=== PATIENT | male | born 1935 ===

== ENCOUNTER 2020-07-11 15:39 | Inpatient (IN) | payer SELFPAY ==
--- NOTE | 2020-07-11 16:11 | Event Note ---
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 Further treatment and workup at subsequent clinical providers discretion. Patient/guardian urged not to elope from the ED as their condition may be serious if not clinically assessed and managed. Initial orders include: Chest pain protocol
[2020-07-11 16:28] LABS: Basophils # (Auto) 0.1 K/mm3 (0.0-0.1); Basophils % (Auto) 0.8 % (0.0-1.8); Eosinophils # (Auto) 0.4 K/mm3 (0.0-0.4); Eosinophils % (Auto) 4.3 % (0.0-4.3); Hematocrit 49.3 % (35.5-45.6); Hemoglobin 16.3 gm/dl (11.8-15.2); Lymphocytes # (Auto) 2.3 K/mm3 (1.2-5.4); Lymphocytes % (Auto) 26.4 % (13.4-35.0); Mean Corpuscular HGB Conc 33 % (32-34); Mean Corpuscular Volume 93 fl (84-94); Monocytes # (Auto) 0.9 K/mm3 (0.0-0.8); Monocytes % (Auto) 10.8 % (0.0-7.3); Platelet Count 266 K/mm3 (140-440); Red Blood Count 5.29 M/mm3 (3.65-5.03); Red Cell Distribution Width 15.7 % (13.2-15.2)
--- NOTE | 2020-07-11 16:46 | XRay Report ---
CHEST 1 VIEW INDICATION / CLINICAL INFORMATION: Chest Pain. COMPARISON: None available. FINDINGS: SUPPORT DEVICES: None. HEART / MEDIASTINUM: No significant abnormality. LUNGS / PLEURA: Mild pulmonary vascular congestion. No pneumothorax. ADDITIONAL FINDINGS: Several metallic fragments are superimposed over the right scapula IMPRESSION: Mild pulmonary vascular congestion Signer Name: Atul Solitario MD FACR Signed: 07/11/2020 4:41 PM Workstation Name: [id number]
[2020-07-11 16:47] LABS: INR 1.03 (0.87-1.13); Partial Thromboplastin Time 30.3 Sec. (24.2-36.6)
[2020-07-11 16:59] LABS: Alanine Aminotransferase 24 units/L (7-56); Albumin 3.6 g/dL (3.9-5); BUN/Creatinine Ratio 13; Blood Urea Nitrogen 13 mg/dL (9-20); Calcium 9.2 mg/dL (8.4-10.2); Hemolysis Index 32
[2020-07-11] MEDS ORDERED: FUROSEMIDE 20 MG/2 ML INJ IV ONE (18:00)
[2020-07-11] MEDS ORDERED: ASPIRIN 325 MG TAB PO ONE (18:00)
[2020-07-11] MEDS ORDERED: HYDROcodone/ACETAMINOPHEN 5-325 MG TAB PO ONE (18:02)
[2020-07-11] MEDS ORDERED: ONDANSETRON 4 MG/2 ML INJ IV ONE (18:02)
--- NOTE | 2020-07-11 18:05 | Emergency Department Report ---
HPI - General Chief Complaint: Dyspnea/Respdistress Time Seen by Provider: 07/11/20 16:06 - HPI HPI: Room 34 The patient is an 84-year-old male present with a chief complaint of chest pain or shortness of breath. Patient has complained of substernal chest pain constantly for the past 2 weeks. Patient also has shortness of breath and nausea vomiting associated with this chest pain. Patient denies diaphoresis. Patient also admits to cough has been productive of sputum for the past 2 weeks. Patient admits to a subjective fever. Patient currently gives his chest pain a score of 7/10. ED Past Medical Hx - Past Medical History Previous Medical History?: No - Surgical History Past Surgical History?: Yes Additional Surgical History: right AKA - Family History Family history: no significant - Social History Smoking Status: Never Smoker Substance Use Type: None ED Review of Systems ROS: Stated complaint: MARGARET/HICUPPS/SENT BY DOCTOR OFFICE Other details as noted in HPI Constitutional: fever (Subjective) Eyes: denies: eye pain ENT: denies: throat pain Respiratory: cough, shortness of breath Cardiovascular: chest pain Endocrine: no symptoms reported Gastrointestinal: nausea, vomiting Genitourinary: denies: dysuria Musculoskeletal: back pain Neurological: denies: headache Physical Exam - Physical Exam Vital Signs: Vital Signs 07/11/20 16:14 Temperature 98.2 F Pulse Rate 78 Respiratory 24 Rate Blood Pressure 99/46 O2 Sat by Pulse 99 Oximetry Physical Exam: GENERAL: The patient is well-developed well-nourished male lying on stretcher not appearing to be in acute distress. [] HEENT: Normocephalic. Atraumatic. Extraocular motions are intact. Patient has moist mucous membranes. NECK: Supple. Trachea midline CHEST/LUNGS: Clear to auscultation. There is no respiratory distress noted. HEART/CARDIOVASCULAR: Regular. There is no tachycardia. There is no gallop rub or murmur. ABDOMEN: Abdomen is soft, nontender. Patient has normal bowel sounds. There is no abdominal distention. SKIN: There is no rash. There is no edema. There is no diaphoresis. NEURO: The patient is awake, alert, and oriented. The patient is cooperative. The patient has no focal neurologic deficits. The patient has normal speech MUSCULOSKELETAL:There is no evidence of acute injury. ED Course Vital Signs 07/11/20 16:14 Temperature 98.2 F Pulse Rate 78 Respiratory 24 Rate Blood Pressure 99/46 O2 Sat by Pulse 99 Oximetry ED Medical Decision Making - Lab Data Result diagrams: 07/11/20 16:17 07/11/20 16:17 Laboratory Tests 07/11/20 07/11/20 07/11/20 16:17 16:17 16:17 WBC 8.7 RBC 5.29 H Hgb 16.3 H Hct 49.3 H MCV 93 MCH 31 MCHC 33 RDW 15.7 H Plt Count 266 Lymph % (Auto) 26.4 [place] % (Auto) 10.8 H Eos % (Auto) 4.3 Baso % (Auto) 0.8 Lymph # (Auto) 2.3 [place] # (Auto) 0.9 H Eos # (Auto) 0.4 Baso # (Auto) 0.1 Seg Neutrophils % 57.7 Seg Neutrophils # 5.0 PT 13.3 INR 1.03 APTT 30.3 Sodium 138 Potassium 4.1 Chloride 101.8 Carbon Dioxide 25 Anion Gap 15 BUN 13 Creatinine 1.0 Estimated GFR > 60 BUN/Creatinine Ratio 13 Glucose 93 Calcium 9.2 Magnesium Total Bilirubin 0.90 AST 31 ALT 24 Alkaline Phosphatase 116 Total Creatine Kinase Troponin T 0.011 NT-Pro-B Natriuret Pep 2337 H Total Protein 6.8 Albumin 3.6 L Albumin/Globulin Ratio 1.1 Lipase 13 07/11/20 16:17 WBC RBC Hgb Hct MCV MCH MCHC RDW Plt Count Lymph % (Auto) Haines % (Auto) Eos % (Auto) Baso % (Auto) Lymph # (Auto) Haines # (Auto) Eos # (Auto) Baso # (Auto) Seg Neutrophils % Seg Neutrophils # PT INR APTT Sodium Potassium Chloride Carbon Dioxide Anion Gap BUN Creatinine Estimated GFR BUN/Creatinine Ratio Glucose Calcium Magnesium 2.10 Total Bilirubin AST ALT Alkaline Phosphatase Total Creatine Kinase 96 Troponin T NT-Pro-B Natriuret Pep Total Protein Albumin Albumin/Globulin Ratio Lipase - EKG Data -: EKG Interpreted by Me EKG shows normal: sinus rhythm Rate: normal - EKG Data When compared to previous EKG there are: previous EKG unavailable Interpretation: nonspecific ST-T wave radha (Wellen's sign) - Radiology Data Radiology results: report reviewed (Chest x-ray), image reviewed (Chest x-ray) interpreted by me: Chest x-ray-no focal infiltrates, no pneumothorax. Metal fragments overlying right shoulder otherwise no foreign body seen [facility] [address] [place] [address] XRay Report Signed Patient: JACINDA TAI MR#: [id number] : 1935 Acct:[id number] Age/Sex: 84 / M ADM Date: 07/11/20 Loc: ED A ttending Dr: Ordering Physician: KELLY GODINEZ Date of Service: 07/11/20 Procedure(s): XR chest 1V ap Accession Number(s): [id number] cc: KELLY GODINEZ Fluoro Time In Minutes: CHEST 1 VIEW INDICATION / CLINICAL INFORMATION: Chest Pain. COMPARISON: None available. FINDINGS: SUPPORT DEVICES: None. HEART / MEDIASTINUM: No significant abnormality. LUNGS / PLEURA: Mild pulmonary vascular congestion. No pneumothorax. ADDITIONAL FINDINGS: Several metallic fragments are superimposed over the right scapula IMPRESSION: Mild pulmonary vascular congestion Signer Name: Atul Solitario MD FACR Signed: 07/11/2020 4:41 PM Workstation Name: [id number] Transcribed By: MS Dictated By: Atul levy MD Electronically Authenticated By: Atul Solitario MD Signed Date/Time: 07/11/201640 DD/ 40 TD/TT: - Differential Diagnosis ACS, CHF, pericarditis, GERD, COVID-19 Critical care attestation.: If time is entered above; I have spent that time in minutes in the direct care of this critically ill patient, excluding procedure time. ED Disposition Clinical Impression: Chest pain, New onset of congestive heart failure, T wave inversion in EKG Disposition: OP ADMIT IP TO THIS HOSP Is pt being admited?: Yes Does the pt Need Aspirin: Yes Condition: Fair Instructions: Chest Pain (ED) Time of Disposition: 18:07 (Hospitalist paged (Dr. Colunga)) HEART Score - HEART Score History: Moderately suspicious EKG: Non-specific Age: > 65 Risk factors: 1-2 risk factors Troponin: Troponin T 0.011 ng/mL (0.00-0.029) 07/11/20 16:17 Troponin: < normal limit HEART Score: 5
--- NOTE | 2020-07-11 18:30 | History and Physical Report ---
History of Present Illness Chief complaint: I cannot breathe History of present illness: 84 YO Male with no PMH presents to ED for evaluation. Pt reports" I can not breathe". Pt states that he has experienced shortness of breath, generalized weakness, body aches, productive cough with clear sputum, and subjective fever over the past 2 weeks with worsening symptoms over the past 4 days. Patient knowledges chest wall discomfort with deep breathing. Patient transported to [facility] via private vehicle for further care and evaluation of the aforementioned symptoms. The patient was seen and evaluated in the emergency department. All lab and imaging studies reviewed. The patient was found to have symptoms consistent with coronavirus infection. Patient also found to have clinical symptoms as well as laboratory findings, and chest x-ray findings consistent with CHF decompensation. Patient admitted to medical floor and initiated on coronavirus protocol as well as CHF protocol. Patient denies chills, chest pain, palpitation, productive cough, skin rash, recent ill contacts, or known exposure to COVID-19. No prior admission for review. No medication listed at time of admission for reconciliation. Advanced care planning conducted in ED. Past History Past Medical History: No medical history, other (Reviewed) Past Surgical History: No surgical history, Other (Reviewed) Social history: single. denies: smoking, alcohol abuse, prescription drug abuse Family history: hypertension Medications and Allergies Allergies Allergy/AdvReac Type Severity Reaction Status Date / Time No Known Allergies Allergy Verified 07/11/20 18:39 Home Medications Medication Instructions Recorded Confirmed Last Taken Type No Known Home Medications [No 07/11/20 07/11/20 Unknown History Reported Home Medications] Review of Systems Constitutional: fever, fatigue, weakness, malaise, no weight loss, no weight gain Ears, nose, mouth and throat: no ear pain, no ear discharge, no tinnitis, no decreased hearing, no nasal congestion, no nasal discharge Cardiovascular: no chest pain, no orthopnea, no rapid/irregular heart beat, no edema, no syncope Respiratory: cough, cough with sputum, shortness of breath, no excessive sputum, no hemoptysis Gastrointestinal: no abdominal pain, no nausea, no vomiting Genitourinary Male: no hematuria, no flank pain, no discharge, no urinary frequency, no urinary hesitancy, no incontinence Rectal: no pain, no incontinence, no bleeding Musculoskeletal: no neck pain, no shooting arm pain, no arm numbness/tingling, no low back pain, no shooting leg pain Integumentary: no rash, no pruritis, no wounds, no boils Neurological: no head injury, no paralysis, no parathesias, no tingling, no seizures, no syncope Psychiatric: no anxiety, no sleep disturbances, no hypersomnia, no change in appetite, no change in libido, no disorientation Endocrine: no cold intolerance, no excessive thirst, no polyuria, no nocturia Hematologic/Lymphatic: no easy bruising, no lymphadenopathy Allergic/Immunologic: no persistent infections Exam - Constitutional Vitals: Temp Pulse Resp BP Pulse Ox 98.2 F 93 H 18 118/59 96 07/11/20 16:14 07/11/20 18:17 07/11/20 18:17 07/11/20 18:17 07/11/20 18:17 General appearance: Present: mild distress - EENT Eyes: Present: PERRL ENT: hearing intact, clear oral mucosa - Neck Neck: Present: supple, normal ROM - Respiratory Respiratory effort: normal Respiratory: bilateral: diminished, rales - Cardiovascular Rhythm: regular Heart Sounds: Present: S1 & S2. Absent: rub, click - Extremities Extremities: no ischemia, pulses symmetrical Extremity abnormal: edema Peripheral Pulses: within normal limits - Abdominal General gastrointestinal: Present: soft, non-tender, non-distended, normal bowel sounds Male genitourinary: Present: normal - Integumentary Integumentary: Present: clear, warm, dry - Musculoskeletal Musculoskeletal: gait normal, strength equal bilaterally - Psychiatric Psychiatric: appropriate mood/affect, intact judgment & insight - Neurologic Neurologic: CNII-XII intact, moves all extremities HEART Score - HEART Score EKG: Non-specific Age: > 65 Risk factors: 1-2 risk factors Troponin: Troponin T 0.011 ng/mL (0.00-0.029) 07/11/20 16:17 Troponin: < normal limit Results - Labs CBC & Chem 7: 07/11/20 16:17 07/11/20 18:27 Labs: Abnormal lab results 07/11/20 07/11/20 Range/Units 16:17 16:17 RBC 5.29 H (3.65-5.03) M/mm3 Hgb 16.3 H (11.8-15.2) gm/dl Hct 49.3 H (35.5-45.6) % RDW 15.7 H (13.2-15.2) % [place] % (Auto) 10.8 H (0.0-7.3) % [place] # (Auto) 0.9 H (0.0-0.8) K/mm3 NT-Pro-B Natriuret Pep 2337 H (0-900) pg/mL Albumin 3.6 L (3.9-5) g/dL Assessment and Plan - Patient Problems (1) CHF (congestive heart failure) Current Visit: Yes Status: Acute Qualifiers: Heart failure chronicity: acute Plan to address problem: CHF protocol: Admit to telemetry, BNP, thyroid panel, magnesium level, echocardiogram ordered and pending at time of admission, chest x-ray, cardiology team consulted in ED. (2) Suspected 2019 novel coronavirus infection Current Visit: Yes Status: Acute Plan to address problem: Coronavirus protocol: Oxygen, isolation precautions, coronavirus PCR ordered and pending at time of admission, chest x-ray, supplemental oxygen, pulse oximetry. Suspect symptoms more consistent with CHF decompensation. (3) DVT prophylaxis Current Visit: Yes Status: Acute Plan to address problem: SCD to bilateral lower extremities while in bed, patient is ambulatory. (4) Advance care planning Current Visit: Yes Status: Acute Plan to address problem: Disease education conducted, patient is full code, care plan discussed, progn osis discussed, patient knowledges understanding and agreement with care plan, +30 minutes.
[2020-07-11] MEDS ORDERED: ACETAMINOPHEN 325 MG TAB PO PRN (18:34)
[2020-07-11] MEDS ORDERED: ALBUTEROL 2.5 MG/3 ML NEBU IH PRN (18:34)
[2020-07-11 20:54] LABS: C-Reactive Protein 2.1 mg/dL (0.00-1.30)
[2020-07-11 22:30] LABS: Free T4 (Free Thyroxine) 1.08 ng/dL (0.76-1.46)
[2020-07-11] MEDS: ONDANSETRON 4 MG/2 ML INJ IV PRN (23:31)
[2020-07-12 06:09] LABS: BUN/Creatinine Ratio 15; Blood Urea Nitrogen 15 mg/dL (9-20); Calcium 8.7 mg/dL (8.4-10.2); Hemolysis Index 22
[2020-07-12 06:16] LABS: Basophils % (Auto) 0.4 % (0.0-1.8); Eosinophils # (Auto) 0.5 K/mm3 (0.0-0.4); Eosinophils % (Auto) 5.4 % (0.0-4.3); Hematocrit 51.2 % (35.5-45.6); Hemoglobin 17.2 gm/dl (11.8-15.2); Lymphocytes # (Auto) 2.3 K/mm3 (1.2-5.4); Lymphocytes % (Auto) 26.8 % (13.4-35.0); Mean Corpuscular HGB Conc 34 % (32-34); Mean Corpuscular Volume 93 fl (84-94); Monocytes # (Auto) 0.9 K/mm3 (0.0-0.8); Monocytes % (Auto) 10.2 % (0.0-7.3); Platelet Count 152 K/mm3 (140-440); Red Blood Count 5.53 M/mm3 (3.65-5.03); Red Cell Distribution Width 15.2 % (13.2-15.2)
--- NOTE | 2020-07-12 10:49 | Progress Note ---
Assessment and Plan Assessment and plan: 84 YO Male with no PMH presents to ED for evaluation. Pt reports" I can not breathe". Information limited due to log sorter used. Pt states that he has experienced shortness of breath, generalized weakness, body aches, productive cough with clear sputum, and subjective fever over the past 2 weeks with worsening symptoms over the past 4 days. Patient knowledges chest wall discomfort with deep breathing. Patient transported to [facility] via private vehicle for further care and evaluation of the aforementioned symptoms. The patient was found to have symptoms consistent with coronavirus infection. Patient also found to have clinical symptoms as well as laboratory findings, and chest x-ray findings consistent with CHF decompensation. 07/12: We will continue current management at this time. Patient with elevated D-dimer we will check a CTA to rule out pulmonary embolism and also Doppler of the left lower extremity to rule out DVT. We will try to contact family to obtain further information, will start patient on Solumedrol while awaiting COVID19 Test result. Patient may benefit from outpatient cardiology evaluation or inpatient work-up. If Covid is negative will proceed with echocardiogram. Continue to wean oxygen as tolerated have discussed with nursing staff to obtain home medications. Patient did receive Lasix in the ER. May require additional doses. Will monitor closely. Will start patient on Eliquis 5 mg p.o. twice daily secondary to elevated D-dimer. Continue isolation precautions. Acute on chronic congestive heart failure etiology unknown Acute hypoxic respiratory failure Gastro enteritis likely secondary to viral infection Suspected 2018 novel coronavirus Right BKA Hypercoagulopathy state History Interval history: Patient seen and examined clinically stable but still with some hiccups and shortness of breath. Hospitalist Physical - Physical exam Narrative exam: VITAL SIGNS: Reviewed. GENERAL: The patient appears normally developed, mild shortness of breath vital signs as documented. HEAD: No signs of head trauma. EYES: Pupils are equal. Extraocular motions intact. EARS: Hearing grossly intact. MOUTH: Oropharynx is normal. NECK: No adenopathy, no JVD. CHEST: Chest with diminished breath sounds bilaterally. No wheezes, rales, or rhonchi. CARDIAC: Regular rate and rhythm. S1 and S2, without murmurs, gallops, or rubs. VASCULAR: No Edema. Peripheral pulses normal and equal in all extremities. ABDOMEN: Soft, non tender and non distended. No rebound or guarding, and no masses palpated. Bowel Sounds normal. MUSCULOSKELETAL: Right BKA, good range of motion of all major joints. Extremities without clubbing, cyanosis or edema. NEUROLOGIC EXAM: Alert and oriented x 3 No focal sensory or strength deficits. Speech normal. Follows commands. PSYCHIATRIC: Mood normal. SKIN: detail exam as documented in skin assessment - Constitutional Vitals: Temp Pulse Resp BP Pulse Ox 97.5 F L 78 16 117/61 96 07/12/20 05:26 07/12/20 05:26 07/12/20 05:26 07/12/20 05:26 07/12/20 05:26 General appearance: Present: mild distress HEART Score - HEART Score EKG: Non-specific Age: > 65 Risk factors: 1-2 risk factors Troponin: Troponin T < 0.010 ng/mL (0.00-0.029) 07/11/20 18:29 Troponin: < normal limit Results - Labs CBC & Chem 7: 07/12/20 05:05 07/12/20 05:05 Labs: Laboratory Last Values WBC 8.5 K/mm3 (4.5-11.0) 07/12/20 05:05 RBC 5.53 M/mm3 (3.65-5.03) H 07/12/20 05:05 Hgb 17.2 gm/dl (11.8-15.2) H 07/12/20 05:05 Hct 51.2 % (35.5-45.6) H 07/12/20 05:05 MCV 93 fl (84-94) 07/12/20 05:05 MCH 31 pg (28-32) 07/12/20 05:05 MCHC 34 % (32-34) 07/12/20 05:05 RDW 15.2 % (13.2-15.2) 07/12/20 05:05 Plt Count 152 K/mm3 (140-440) 07/12/20 05:05 Lymph % (Auto) 26.8 % (13.4-35.0) 07/12/20 05:05 [place] % (Auto) 10.2 % (0.0-7.3) H 07/12/20 05:05 Eos % (Auto) 5.4 % (0.0-4.3) H 07/12/20 05:05 Baso % (Auto) 0.4 % (0.0-1.8) 07/12/20 05:05 Lymph # (Auto) 2.3 K/mm3 (1.2-5.4) 07/12/20 05:05 [place] # (Auto) 0.9 K/mm3 (0.0-0.8) H 07/12/20 05:05 Eos # (Auto) 0.5 K/mm3 (0.0-0.4) H 07/12/20 05:05 Baso # (Auto) 0.0 K/mm3 (0.0-0.1) 07/12/20 05:05 Seg Neutrophils % 57.2 % (40.0-70.0) 07/12/20 05:05 Seg Neutrophils # 4.9 K/mm3 (1.8-7.7) 07/12/20 05:05 PT 13.3 Sec. (12.2-14.9) 07/11/20 16:17 INR 1.03 (0.87-1.13) 07/11/20 16:17 APTT 30.3 Sec. (24.2-36.6) 07/11/20 16:17 D-Dimer 2470.19 ng/mlDDU (0-234) H 07/11/20 18:27 Sodium 138 mmol/L (137-145) 07/12/20 05:05 Potassium 4.0 mmol/L (3.6-5.0) 07/12/20 05:05 Chloride 102.1 mmol/L (98-107) 07/12/20 05:05 Carbon Dioxide 25 mmol/L (22-30) 07/12/20 05:05 Anion Gap 15 mmol/L 07/12/20 05:05 BUN 15 mg/dL (9-20) 07/12/20 05:05 Creatinine 1.0 mg/dL (0.8-1.3) 07/12/20 05:05 Estimated GFR > 60 ml/min 07/12/20 05:05 BUN/Creatinine Ratio 15 % 07/12/20 05:05 Glucose 90 mg/dL (75-100) 07/12/20 05:05 Calcium 8.7 mg/dL (8.4-10.2) 07/12/20 05:05 Magnesium 2.10 mg/dL (1.7-2.3) 07/11/20 21:09 Ferritin 173.6 ng/mL (30.0-300.0) 07/11/20 18:27 Total Bilirubin 0.90 mg/dL (0.1-1.2) 07/11/20 16:17 AST 31 units/L (5-40) 07/11/20 16:17 ALT 24 units/L (7-56) 07/11/20 16:17 Alkaline Phosphatase 116 units/L (35-129) 07/11/20 16:17 Lactate Dehydrogenase 283 units/L (91-180) H 07/11/20 18:27 Total Creatine Kinase 96 units/L (55-170) 07/11/20 16:17 Troponin T < 0.010 ng/mL (0.00-0.029) 07/11/20 18:29 C-Reactive Protein 2.10 mg/dL (0.00-1.30) H 07/11/20 18:27 NT-Pro-B Natriuret Pep 2337 pg/mL (0-900) H 07/11/20 16:17 Total Protein 6.8 g/dL (6.3-8.2) 07/11/20 16:17 Albumin 3.6 g/dL (3.9-5) L 07/11/20 16:17 Albumin/Globulin Ratio 1.1 % 07/11/20 16:17 Lipase 13 units/L (13-60) 07/11/20 16:17 TSH 2.790 mlU/mL (0.270-4.200) 07/11/20 21:09 Free T4 1.08 ng/dL (0.76-1.46) 07/11/20 21:09 Microbiology: Microbiology 07/11/20 18:27 Peripheral/Venous Blood Culture - Preliminary Culture in Progress 07/11/20 18:30 Peripheral/Venous Blood Culture - Preliminary Culture in Progress Jesus/IV: Voiding Method Urinal Active Medications - Current Medications Current Medications: Generic Name Dose Route Start Last Admin Trade Name Freq PRN Reason Stop Dose Admin Acetaminophen 650 mg 07/11/20 18:34 Acetaminophen 325 Mg Tab PO Q4H PRN Pain MILD(1-3)/Fever >100.5/MOORE Albuterol 2.5 mg 07/11/20 18:34 Albuterol 2.5 Mg/3 Ml Nebu IH Q4HRT PRN Shortness Of Breath Apixaban 5 mg 07/12/20 11:00 Apixaban 5 Mg Tab PO Q12HR [facility] Protocol Ondansetron HCl 4 mg 07/11/20 18:34 07/11/20 23:31 Ondansetron 4 Mg/2 Ml Inj IV 4 mg Q8H PRN Administration Nausea And Vomiting Sodium Chloride 10 ml 07/11/20 22:00 07/11/20 22:10 Sodium Chloride 0.9% 10 Ml Flush Syringe IV 10 ml BID SALAS Administration Sodium Chloride 10 ml 07/11/20 18:34 Sodium Chloride 0.9% 10 Ml Flush Syringe IV PRN PRN LINE FLUSH
[2020-07-12] MEDS: ONDANSETRON 4 MG/2 ML INJ IV PRN (10:58)
--- NOTE | 2020-07-12 11:52 | Consultation ---
History of Present Illness Consult date: 07/12/20 Requesting physician: CARA SRINIVASAN Consult reason: congestive heart failure History of present illness: The patient is an 84 YO male with no known significant past medical history. He is previously unknown to our practice. He presented with c/o " I can not breathe". Pt states that he has experienced shortness of breath, generalized weakness, body aches, productive cough with clear sputum, and subjective fever over the past 2 weeks with worsening symptoms over the past 4 days. Patient knowledges chest wall discomfort with deep breathing. Following arrival to ED, the patient was found to have symptoms consistent with coronavirus infection. COVID-19 testing is pending. Past History Past Medical History: No medical history Past Surgical History: No surgical history, Other (Reviewed) Social history: single. denies: smoking, alcohol abuse, prescription drug abuse Family history: hypertension Medications and Allergies Allergies Allergy/AdvReac Type Severity Reaction Status Date / Time No Known Allergies Allergy Verified 07/11/20 18:39 Home Medications Medication Instructions Recorded Confirmed Last Taken Type No Known Home Medications [No 07/11/20 07/11/20 Unknown History Reported Home Medications] Active Meds: Active Medications Acetaminophen (Acetaminophen 325 Mg Tab) 650 mg PO Q4H PRN PRN Reason: Pain MILD(1-3)/Fever >100.5/MOORE Albuterol (Albuterol 2.5 Mg/3 Ml Nebu) 2.5 mg IH Q4HRT PRN PRN Reason: Shortness Of Breath Apixaban (Apixaban 5 Mg Tab) 5 mg PO Q12HR SALAS; Protocol Furosemide (Furosemide 40 Mg/4 Ml Inj) 40 mg IV QDAY SALAS Methylprednisolone Sodium Succinate (Methylprednisolone Sod Succinate 125 Mg/2 Ml Inj) 60 mg IV Q8HR SALAS Ondansetron HCl (Ondansetron 4 Mg/2 Ml Inj) 4 mg IV Q8H PRN PRN Reason: Nausea And Vomiting Last Admin: 07/12/20 10:58 Dose: 4 mg Documented by: Sodium Chloride (Sodium Chloride 0.9% 10 Ml Flush Syringe) 10 ml IV BID SALAS Last Admin: 07/12/20 10:58 Dose: 10 ml Documented by: Sodium Chloride (Sodium Chloride 0.9% 10 Ml Flush Syringe) 10 ml IV PRN PRN PRN Reason: LINE FLUSH Review of Systems All systems: negative (as her H&P) Physical Examination Vital Signs Temp Pulse Resp BP Pulse Ox 98.2 F 78 24 99/46 99 07/11/20 16:14 07/11/20 16:14 07/11/20 16:14 07/11/20 16:14 07/11/20 16:14 Narrative exam: agree with physical examination per primary team Results 07/12/20 05:05 07/12/20 05:05 Cardiac Enzymes 07/11/20 07/11/20 Range/Units 16:17 18:27 AST 31 (5-40) units/L Lactate Dehydrogenase 283 H (91-180) units/L Coagulation 07/11/20 Range/Units 16:17 PT 13.3 (12.2-14.9) Sec. INR 1.03 (0.87-1.13) APTT 30.3 (24.2-36.6) Sec. CBC 07/11/20 07/12/20 Range/Units 16:17 05:05 WBC 8.7 8.5 (4.5-11.0) K/mm3 RBC 5.29 H 5.53 H (3.65-5.03) M/mm3 Hgb 16.3 H 17.2 H (11.8-15.2) gm/dl Hct 49.3 H 51.2 H (35.5-45.6) % Plt Count 266 152 (140-440) K/mm3 Lymph # (Auto) 2.3 2.3 (1.2-5.4) K/mm3 [place] # (Auto) 0.9 H 0.9 H (0.0-0.8) K/mm3 Eos # (Auto) 0.4 0.5 H (0.0-0.4) K/mm3 Baso # (Auto) 0.1 0.0 (0.0-0.1) K/mm3 Comprehensive Metabolic Panel 07/11/20 07/11/20 07/12/20 Range/Units 16:17 18:27 05:05 Sodium 138 138 (137-145) mmol/L Potassium 4.1 4.0 (3.6-5.0) mmol/L Chloride 101.8 102.1 (98-107) mmol/L Carbon Dioxide 25 25 (22-30) mmol/L BUN 13 15 (9-20) mg/dL Creatinine 1.0 1.0 (0.8-1.3) mg/dL Glucose 93 91 90 (75-100) mg/dL Calcium 9.2 8.7 (8.4-10.2) mg/dL AST 31 (5-40) units/L ALT 24 (7-56) units/L Alkaline Phosphatase 116 (35-129) units/L Total Protein 6.8 (6.3-8.2) g/dL Albumin 3.6 L (3.9-5) g/dL - Imaging and Cardiology Echo: pending EKG: report reviewed, image reviewed EKG interpretations - Telemetry EKG Rhythm: Sinus Rhythm - EKG Sinus rhythms and dysrhythmias: sinus rhythm Assessment and Plan Pt admitted with suspected COVID-19. Cardiology has been consulted for HF. Agree with present cardiac regimen, including IV lasix and lopressor. tele reviewed - pt in SR with OneShieldq PACs and ? ectopic atrial rhythm v. AFlutter? Eliquis initiated per primary in setting of elevated DDimer and suspected COVID- 19. Cont to observe on telemetry. Plan to obtain tte pending COVID-19 test results. Will follow. The patient has been seen in conjunction with Dr. Maryan Diaz who agrees with the assessment and plan of care. - Patient Problems (1) Suspected 2019 novel coronavirus infection Current Visit: Yes Status: Acute (2) Acute heart failure Current Visit: Yes Status: Acute (3) Ectopic atrial rhythm Current Visit: Yes Status: Acute Plan to address problem: v. AFlutter
--- NOTE | 2020-07-12 12:00 | Cat Scan Report ---
CT angio chest INDICATION: MAIN. TECHNIQUE: All CT scans at this location are performed using CT dose reduction for ALARA by means of automated e xposure control. COMPARISON: None available. FINDINGS: The entire esophagus is slightly dilated and thick-walled, with no appreciable focal mass. Small johny tracheal and aortopulmonary nodes, but no significant mediastinal or hilar adenopathy. Small pericard ial effusion. Uppermost abdomen is negative. Diffuse, chronic appearing interstitial disease but no acute superimposed disease. No evidence of pulmonary embolus. IMPRESSION: 1. Chronic appearing interstitial disease, but no evidence of pulmonary embolus or other acute abnorm ality. Signer Name: Rikki Pollard MD Signed: 07/12/2020 11:55 AM Workstation Name: [id number]
[2020-07-12] MEDS: FUROSEMIDE 40 MG/4 ML INJ IV SCH (12:56)
[2020-07-12] MEDS: APIXABAN 5 MG TAB PO SCH ×2 (12:56→21:50)
[2020-07-12] MEDS: methylPREDNISolone Sod Succinate 125 MG/2 ML INJ IV SCH ×2 (12:56→21:50)
--- NOTE | 2020-07-12 14:19 | Vascular Lab Report ---
DUPLEX DOPPLER LOWER EXTREMITY VEINS, BILATERAL INDICATION / CLINICAL INFORMATION: dvt. TECHNIQUE: Duplex doppler imaging was performed through the veins of both lower extremities using venous buzz brittany and other maneuvers. COMPARISON: None available. FINDINGS: RIGHT COMMON FEMORAL VEIN: Negative. RIGHT FEMORAL VEIN: Negative. RIGHT POPLITEAL VEIN: Negative. RIGHT CALF VEINS: Negative. LEFT COMMON FEMORAL VEIN: Negative. LEFT FEMORAL VEIN: Negative. LEFT POPLITEAL VEIN: Negative. LEFT CALF VEINS: Negative. ADDITIONAL FINDINGS: None. IMPRESSION: 1. No sonographic evidence for DVT in either lower extremity. Signer Name: Atul Solitario MD FACGeraldo Signed: 07/12/2020 2:14 PM Workstation Name: [id number]
[2020-07-12] MEDS: METOPROLOL TARTRATE 25 MG TAB PO SCH (23:36)
[2020-07-13] MEDS: methylPREDNISolone Sod Succinate 125 MG/2 ML INJ IV SCH (05:49)
[2020-07-13 07:30] LABS: BUN/Creatinine Ratio 22; Blood Urea Nitrogen 24 mg/dL (9-20); Calcium 8.9 mg/dL (8.4-10.2); Hemolysis Index 22
--- NOTE | 2020-07-13 07:37 | Progress Note ---
Assessment and Plan Assessment and plan: 84 YO Male with no PMH presents to ED for evaluation. Pt reports" I can not breathe". 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 Pt states that he has experienced shortness of breath, generalized weakness, body aches, productive cough with clear sputum, and subjective fever over the past 2 weeks with worsening symptoms over the past 4 days. Patient knowledges chest wall discomfort with deep breathing. Patient transported to [facility] via private vehicle for further care and evaluation of the aforementioned symptoms. The patient was found to have symptoms consistent with coronavirus infection. Patient also found to have clinical symptoms as well as laboratory findings, and chest x-ray findings consistent with CHF decompensation. 07/12: We will continue current management at this time. Patient with elevated D-dimer we will check a CTA to rule out pulmonary embolism and also Doppler of the left lower extremity to rule out DVT. We will try to contact family to obtain further information, will start patient on Solumedrol while awaiting COVID19 Test result. Patient may benefit from outpatient cardiology evaluation or inpatient work-up. If Covid is negative will proceed with echocardiogram. Continue to wean oxygen as tolerated have discussed with nursing staff to obtain home medications. Patient did receive Lasix in the ER. May require additional doses. Will monitor closely. Will start patient on Eliquis 5 mg p.o. twice daily secondary to elevated D-dimer. Continue isolation precautions. 07/13: Covid 19 confirmed, changed to dexamethasone, evaluate for home oxygen in am. No DVT OR PE noted on imaging, except chronic respiratory changes. Will change to prophylaxis anticoagulation dose. ID consulted. Continue supportive care. Acute on chronic congestive heart failure etiology unknown Acute hypoxic respiratory failure Gastro enteritis likely secondary to viral infection 2019 novel coronavirus Right BKA Hypercoagulopathy state History Interval history: Patient seen and examined clinically stable still with mild shortness of breath Hospitalist Physical - Physical exam Narrative exam: VITAL SIGNS: Reviewed. GENERAL: The patient appears normally developed, mild shortness of breath vital signs as documented. HEAD: No signs of head trauma. EYES: Pupils are equal. Extraocular motions intact. EARS: Hearing grossly intact. MOUTH: Oropharynx is normal. NECK: No adenopathy, no JVD. CHEST: Chest with diminished breath sounds bilaterally. No wheezes, rales, or rhonchi. CARDIAC: Regular rate and rhythm. S1 and S2, without murmurs, gallops, or rubs. VASCULAR: No Edema. Peripheral pulses normal and equal in all extremities. ABDOMEN: Soft, non tender and non distended. No rebound or guarding, and no masses palpated. Bowel Sounds normal. MUSCULOSKELETAL: Right BKA, good range of motion of all major joints. Extremit ies without clubbing, cyanosis or edema. NEUROLOGIC EXAM: Alert and oriented x 3 No focal sensory or strength deficits. Speech normal. Follows commands. PSYCHIATRIC: Mood normal. SKIN: detail exam as documented in skin assessment - Constitutional Vitals: Temp Pulse Resp BP Pulse Ox 97.8 F 54 L 16 102/48 94 07/13/20 05:13 07/13/20 05:13 07/13/20 05:13 07/13/20 05:13 07/13/20 05:13 General appearance: Present: mild distress HEART Score - HEART Score EKG: Non-specific Age: > 65 Risk factors: 1-2 risk factors Troponin: Troponin T < 0.010 ng/mL (0.00-0.029) 07/11/20 18:29 Troponin: < normal limit Results - Labs CBC & Chem 7: 07/12/20 05:05 07/13/20 04:40 Labs: Laboratory Last Values WBC 8.5 K/mm3 (4.5-11.0) 07/12/20 05:05 RBC 5.53 M/mm3 (3.65-5.03) H 07/12/20 05:05 Hgb 17.2 gm/dl (11.8-15.2) H 07/12/20 05:05 Hct 51.2 % (35.5-45.6) H 07/12/20 05:05 MCV 93 fl (84-94) 07/12/20 05:05 MCH 31 pg (28-32) 07/12/20 05:05 MCHC 34 % (32-34) 07/12/20 05:05 RDW 15.2 % (13.2-15.2) 07/12/20 05:05 Plt Count 152 K/mm3 (140-440) 07/12/20 05:05 Lymph % (Auto) 26.8 % (13.4-35.0) 07/12/20 05:05 [place] % (Auto) 10.2 % (0.0-7.3) H 07/12/20 05:05 Eos % (Auto) 5.4 % (0.0-4.3) H 07/12/20 05:05 Baso % (Auto) 0.4 % (0.0-1.8) 07/12/20 05:05 Lymph # (Auto) 2.3 K/mm3 (1.2-5.4) 07/12/20 05:05 [place] # (Auto) 0.9 K/mm3 (0.0-0.8) H 07/12/20 05:05 Eos # (Auto) 0.5 K/mm3 (0.0-0.4) H 07/12/20 05:05 Baso # (Auto) 0.0 K/mm3 (0.0-0.1) 07/12/20 05:05 Seg Neutrophils % 57.2 % (40.0-70.0) 07/12/20 05:05 Seg Neutrophils # 4.9 K/mm3 (1.8-7.7) 07/12/20 05:05 PT 13.3 Sec. (12.2-14.9) 07/11/20 16:17 INR 1.03 (0.87-1.13) 07/11/20 16:17 APTT 30.3 Sec. (24.2-36.6) 07/11/20 16:17 D-Dimer 2470.19 ng/mlDDU (0-234) H 07/11/20 18:27 Sodium 134 mmol/L (137-145) L 07/13/20 04:40 Potassium 4.0 mmol/L (3.6-5.0) 07/13/20 04:40 Chloride 94.5 mmol/L (98-107) L 07/13/20 04:40 Carbon Dioxide 26 mmol/L (22-30) 07/13/20 04:40 Anion Gap 18 mmol/L 07/13/20 04:40 BUN 24 mg/dL (9-20) H 07/13/20 04:40 Creatinine 1.1 mg/dL (0.8-1.3) 07/13/20 04:40 Estimated GFR > 60 ml/min 07/13/20 04:40 BUN/Creatinine Ratio 22 % 07/13/20 04:40 Glucose 138 mg/dL (75-100) H 07/13/20 04:40 Calcium 8.9 mg/dL (8.4-10.2) 07/13/20 04:40 Magnesium 2.10 mg/dL (1.7-2.3) 07/11/20 21:09 Ferritin 173.6 ng/mL (30.0-300.0) 07/11/20 18:27 Total Bilirubin 0.90 mg/dL (0.1-1.2) 07/11/20 16:17 AST 31 units/L (5-40) 07/11/20 16:17 ALT 24 units/L (7-56) 07/11/20 16:17 Alkaline Phosphatase 116 units/L (35-129) 07/11/20 16:17 Lactate Dehydrogenase 283 units/L (91-180) H 07/11/20 18:27 Total Creatine Kinase 96 units/L (55-170) 07/11/20 16:17 Troponin T < 0.010 ng/mL (0.00-0.029) 07/11/20 18:29 C-Reactive Protein 2.10 mg/dL (0.00-1.30) H 07/11/20 18:27 NT-Pro-B Natriuret Pep 2337 pg/mL (0-900) H 07/11/20 16:17 Total Protein 6.8 g/dL (6.3-8.2) 07/11/20 16:17 Albumin 3.6 g/dL (3.9-5) L 07/11/20 16:17 Albumin/Globulin Ratio 1.1 % 07/11/20 16:17 Lipase 13 units/L (13-60) 07/11/20 16:17 Procalcitonin < 0.05 ng/mL (<0.15) 07/11/20 18:27 TSH 2.790 mlU/mL (0.270-4.200) 07/11/20 21:09 Free T4 1.08 ng/dL (0.76-1.46) 07/11/20 21:09 Coronavirus (PCR) Positive (Negative) A 07/12/20 Unknown Microbiology: Microbiology 07/11/20 18:27 Peripheral/Venous Blood Culture - Preliminary NO GROWTH AFTER 24 HOURS 07/11/20 18:30 Peripheral/Venous Blood Culture - Preliminary NO GROWTH AFTER 24 HOURS Jesus/IV: Voiding Method Urinal Active Medications - Current Medications Current Medications: Generic Name Dose Route Start Last Admin Trade Name Freq PRN Reason Stop Dose Admin Acetaminophen 650 mg 07/11/20 18:34 Acetaminophen 325 Mg Tab PO Q4H PRN Pain MILD(1-3)/Fever >100.5/MOORE Albuterol 2.5 mg 07/11/20 18:34 Albuterol 2.5 Mg/3 Ml Nebu IH Q4HRT PRN Shortness Of Breath Apixaban 5 mg 07/12/20 11:00 07/12/20 21:50 Apixaban 5 Mg Tab PO 5 mg Q12HR SALAS Administration Protocol Dexamethasone 6 mg 07/13/20 10:00 Dexamethasone 4 Mg Tab PO DAILY SALAS Furosemide 40 mg 07/12/20 12:00 07/12/20 12:56 Furosemide 40 Mg/4 Ml Inj IV 40 mg QDAY SALAS Administration Metoprolol Tartrate 25 mg 07/12/20 22:00 07/12/20 23:36 Metoprolol Tartrate 25 Mg Tab PO 25 mg BID SALAS Administration Ondansetron HCl 4 mg 07/11/20 18:34 07/12/20 10:58 Ondansetron 4 Mg/2 Ml Inj IV 4 mg Q8H PRN Administration Nausea And Vomiting Sodium Chloride 10 ml 07/11/20 22:00 07/12/20 21:50 Sodium Chloride 0.9% 10 Ml Flush Syringe IV 10 ml BID SALAS Administration Sodium Chloride 10 ml 07/11/20 18:34 Sodium Chloride 0.9% 10 Ml Flush Syringe IV PRN PRN LINE FLUSH Nutrition/Malnutrition Assess - Dietary Evaluation Nutrition/Malnutrition Findings: Nutrition Notes Start: 07/12/20 1 0:44 Freq: Status: Active Protocol: Document 07/12/20 10:44 AT (Rec: 07/12/20 10:59 AT [id number]) Co-Sign 07/12/20 10:44 MK Nutrition Notes Need for Assessment generated from: copy holder,MST Initial or Follow up Assessment Current Diagnosis Heart Failure Other Pertinent Diagnosis COVID PUI, SOB, Chest Pain Current Diet Cardiac Diet Labs/Tests Reviewed Pertinent Medications Zofran Height 5 ft Weight 68.039 kg [place] Body Weight (kg) 48.18 BMI 29.2 Weight Status Overweight Subjective/Other Information Screen for MST of 2. Was unable to reach pt by phone x2 , however, pt does not speak Iranian. Pt has no PMH. 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 Per RN, unable to determine whether the pt has been eating due to recent admission, but pt is drinking very little fluid. Per RN, pt has no signs of edema. Burn Absent Trauma Absent GI Symptoms Nausea,Vomiting Minimum of two criteria No #1 Nutrition Diagnosis Predicted suboptimal energy intake Etiology chronic illness As Evidenced by Signs and Symptoms SOB, N/V [employer] OPERATIONS Is patient on ventilator? No Is Patient Ambulatory and/or Out of Bed Yes REE-([place]-ambulatory/OOB) [ 1576.757 [id number]] Calculation Used for Recommendations [facility] Additional Notes PRO needs: 68 - 82 g (1-1.2 g/ kg) Fluid needs: 1134-1020 mL or per MD Nutrition Intervention Change Diet Order: Continue Cardiac Diet Add Supplement/Snack (indicate name/kcal Ensure Enlive daily /protein ) Provides kCal: 350 Provides Protein (gm) 20 Goal #1 Meet at least 75% of estimated energy and protein needs via ONS and diet Goal #2 Weight maintenance Anticipated Discharge Needs: Cardiac diet Follow-Up By: 07/14/20 Additional Comments F/U for intankes and ONS tolerance
[2020-07-13] MEDS: METOPROLOL TARTRATE 25 MG TAB PO SCH ×3 (09:36→22:09)
[2020-07-13] MEDS: FUROSEMIDE 40 MG/4 ML INJ IV SCH (09:36)
[2020-07-13] MEDS: DEXAMETHASONE 4 MG TAB PO SCH (09:36)
--- NOTE | 2020-07-13 09:54 | Progress Note ---
Assessment and Plan COVID-19 testing is positive. Tele reviewed - pt in SR with PACs and apparent paroxysms of AFlutter noted overnight, HR 70s. Cont present cardiac management, including lopressor and IV lasix daily. Plan to obtain tte once COVID-19 infection is adequately managed. The patient has been seen in conjunction with Dr. Maryan Diaz who agrees with the assessment and plan of care. - Patient Problems (1) Suspected 2019 novel coronavirus infection Current Visit: Yes Status: Acute (2) Acute heart failure Current Visit: Yes Status: Acute (3) Paroxysmal atrial flutter Current Visit: Yes Status: Chronic Subjective Date of service: 07/13/20 Principal diagnosis: COVID-19 Interval history: tele reviewed - pt in SR with PACs and apparent paroxysms of AFlutter noted overnight, HR 70s. Objective Last Vital Signs Temp 97.8 F 07/13/20 05:13 Pulse 54 L 07/13/20 05:13 Resp 16 07/13/20 05:13 BP 102/48 07/13/20 05:13 Pulse Ox 95 07/13/20 09:12 - Physical Examination Narrative exam: agree with physical examination per primary team - Labs and Meds Comprehensive Metabolic Panel 07/13/20 Range/Units 04:40 Sodium 134 L (137-145) mmol/L Potassium 4.0 (3.6-5.0) mmol/L Chloride 94.5 L (98-107) mmol/L Carbon Dioxide 26 (22-30) mmol/L BUN 24 H (9-20) mg/dL Creatinine 1.1 (0.8-1.3) mg/dL Glucose 138 H (75-100) mg/dL Calcium 8.9 (8.4-10.2) mg/dL - Imaging and Cardiology EKG: report reviewed, image reviewed Echo: pending - EKG Sinus rhythms and dysrhythmias: sinus rhythm
--- NOTE | 2020-07-13 14:00 | Consultation ---
History of Present Illness - Reason for Consult Consult date: 07/13/20 - History of Present Illness 84 yo M presented to the hospital complaining of SOB. He also notes associated weaknees, myalgias, and cough. This began approximately 2 weeks prior and has been progressively worse for the past 4 days. He also complains of chest discomfort with deep breathing. He denies any known exposures to COVID-19. Afebrile, normal white count. Normal renal function and low procalcitonin. Currently on ceftriaxone and azithromycin. imaging personally reviewed: Chest CTA: No PE, chronic interstitial disease. Past History Past Medical History: No medical history Past Surgical History: No surgical history, Other (Reviewed) Social history: single. denies: smoking, alcohol abuse, prescription drug abuse Family history: hypertension Medications and Allergies Allergies Allergy/AdvReac Type Severity Reaction Status Date / Time No Known Allergies Allergy Verified 07/11/20 18:39 Home Medications Medication Instructions Recorded Confirmed Last Taken Type No Known Home Medications [No 07/11/20 07/11/20 Unknown History Reported Home Medications] Active Meds: Active Medications Acetaminophen (Acetaminophen 325 Mg Tab) 650 mg PO Q4H PRN PRN Reason: Pain MILD(1-3)/Fever >100.5/MOORE Albuterol (Albuterol 2.5 Mg/3 Ml Nebu) 2.5 mg IH Q4HRT PRN PRN Reason: Shortness Of Breath Dexamethasone (Dexamethasone 4 Mg Tab) 6 mg PO DAILY [facility] Last Admin: 07/13/20 09:36 Dose: 6 mg Documented by: Furosemide (Furosemide 40 Mg/4 Ml Inj) 40 mg IV QDAY [facility] Last Admin: 07/13/20 09:36 Dose: 40 mg Documented by: Heparin Sodium (Porcine) (Heparin 5,000 Unit/1 Ml Vial) 5,000 unit SUB-Q Q8HR [facility] Metoprolol Tartrate (Metoprolol Tartrate 25 Mg Tab) 25 mg PO BID [facility] Last Admin: 07/13/20 11:05 Dose: Not Given Documented by: Ondansetron HCl (Ondansetron 4 Mg/2 Ml Inj) 4 mg IV Q8H PRN PRN Reason: Nausea And Vomiting Last Admin: 07/12/20 10:58 Dose: 4 mg Documented by: Sodium Chloride (Sodium Chloride 0.9% 10 Ml Flush Syringe) 10 ml IV BID [facility] Last Admin: 07/13/20 10:55 Dose: 10 ml Documented by: Sodium Chloride (Sodium Chloride 0.9% 10 Ml Flush Syringe) 10 ml IV PRN PRN PRN Reason: LINE FLUSH Physical Examination - Physical Exam Narrative exam: Physical exam deferred due to PPE conservation strategy. Please refer to primary team's note. - Constitutional Vitals: Vital Signs Temp Pulse Resp BP Pulse Ox 97.8 F 57 L 20 93/37 95 07/13/20 05:13 07/13/20 11:05 07/13/20 09:45 07/13/20 09:45 07/13/20 09:12 Temperature -Last 24 Hours Temperature 97.8 F Temperature 97.6 F Temperature 97.4 F Results - Labs CBC & Chem 7: 07/12/20 05:05 07/13/20 04:40 Labs: Abnormal lab results 07/12/20 07/13/20 Range/Units Unknown 04:40 Sodium 134 L (137-145) mmol/L Chloride 94.5 L (98-107) mmol/L BUN 24 H (9-20) mg/dL Glucose 138 H (75-100) mg/dL Coronavirus (PCR) Positive A (Negative) Assessment and Plan Cultures: Blood culture no growth COVID-19 positive A/P: 84-year-old male presents with COVID-19 #Severe COVID-19 pneumonia: Patient presented with a 2 weeks of symptoms, chest x-ray with diffuse bilateral infiltrates. Inflammatory markers elevated #Acute hypoxemic respiratory failure: Likely secondary to COVID-19 infection. Currently on Recs: -Dexamethasone 6 mg IV/PO daily for 10 days -Remdesivir 200 mg IV q day x 1 followed by 100 mg IV q day x 4 days. Day 1 of 5. probably marginal benefit at this point. -Obtain q48-72h inflammatory markers - ferritin, Ddimer, CRP, LDH -Stopped empiric antibiotics due to normal procalcitonin. -Anticoagulation per hospital protocol -Proning as able Thank you for the consult, we will continue to follow. Lata Darling MD [facility] O: [phone] F: [phone]
[2020-07-13] MEDS: HEPARIN 5,000 UNIT/1 ML VIAL SUB-Q SCH ×2 (14:14→21:55)
[2020-07-13] MEDS ORDERED: chlorproMAZINE 25 MG TAB PO PRN (15:11)
[2020-07-13] MEDS ORDERED: METOPROLOL TARTRATE 5 MG/5 ML INJ IV ONE (22:11)
[2020-07-14 06:00] LABS: Calcium 8.9 mg/dL (8.4-10.2)
[2020-07-14] MEDS: HEPARIN 5,000 UNIT/1 ML VIAL SUB-Q SCH (06:07)
[2020-07-14] MEDS: METOPROLOL TARTRATE 25 MG TAB PO SCH ×2 (09:11→22:28)
[2020-07-14] MEDS: DEXAMETHASONE 4 MG TAB PO SCH (09:11)
[2020-07-14] MEDS: FUROSEMIDE 40 MG/4 ML INJ IV SCH (09:11)
--- NOTE | 2020-07-14 09:42 | Progress Note ---
Assessment and Plan Assessment and plan: 84 YO Male with no PMH presents to ED for evaluation. Pt reports" I can not breathe". 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 Pt states that he has experienced shortness of breath, generalized weakness, body aches, productive cough with clear sputum, and subjective fever over the past 2 weeks with worsening symptoms over the past 4 days. Patient knowledges chest wall discomfort with deep breathing. Patient transported to [facility] via private vehicle for further care and evaluation of the aforementioned symptoms. The patient was found to have symptoms consistent with coronavirus infection. Patient also found to have clinical symptoms as well as laboratory findings, and chest x-ray findings consistent with CHF decompensation. 07/12: We will continue current management at this time. Patient with elevated D-dimer we will check a CTA to rule out pulmonary embolism and also Doppler of the left lower extremity to rule out DVT. We will try to contact family to obtain further information, will start patient on Solumedrol while awaiting COVID19 Test result. Patient may benefit from outpatient cardiology evaluation or inpatient work-up. If Covid is negative will proceed with echocardiogram. Continue to wean oxygen as tolerated have discussed with nursing staff to obtain home medications. Patient did receive Lasix in the ER. May require additional doses. Will monitor closely. Will start patient on Eliquis 5 mg p.o. twice daily secondary to elevated D-dimer. Continue isolation precautions. 07/13: Covid 19 confirmed, changed to dexamethasone, evaluate for home oxygen in am. No DVT OR PE noted on imaging, except chronic respiratory changes. Will change to prophylaxis anticoagulation dose. ID consulted. Continue supportive care. 07/14: yesterday was noted to have tachycardia, possible underlying atrial flutter. Cardiology following, Echo pending. Continue current management. BB was held due to Hypotension, will decrease dose. Continue dexamethesone and Remdes ivir Acute on chronic congestive heart failure etiology unknown Atrial flutter Acute hypoxic respiratory failure Gastro enteritis likely secondary to viral infection 2019 novel coronavirus Right BKA Hypercoagulopathy state History Interval history: Patient seen and examined clinically stable at this time still with mild shortness of breath, unable to do full 6 mins. Hospitalist Physical - Physical exam Narrative exam: VITAL SIGNS: Reviewed. GENERAL: The patient appears normally developed, mild shortness of breath vital signs as documented. HEAD: No signs of head trauma. EYES: Pupils are equal. Extraocular motions intact. EARS: Hearing grossly intact. MOUTH: Oropharynx is normal. NECK: No adenopathy, no JVD. CHEST: Chest with diminished breath sounds bilaterally. No wheezes, rales, or rhonchi. CARDIAC: Regular rate and rhythm. S1 and S2, without murmurs, gallops, or rubs. VASCULAR: No Edema. Peripheral pulses normal and equal in all extremities. ABDOMEN: Soft, non tender and non distended. No rebound or guarding, and no masses palpated. Bowel Sounds normal. MUSCULOSKELETAL: Right BKA, good range of motion of all major joints. Extremities without clubbing, cyanosis or edema. NEUROLOGIC EXAM: Alert and oriented x 3 No focal sensory or strength deficits. Speech normal. Follows commands. PSYCHIATRIC: Mood normal. SKIN: detail exam as documented in skin assessment - Constitutional Vitals: Temp Pulse Resp BP Pulse Ox 97.5 F L 102 H 18 93/62 98 07/14/20 03:58 07/14/20 09:11 07/14/20 03:58 07/14/20 09:11 07/14/20 03:59 General appearance: Present: mild distress HEART Score - HEART Score EKG: Non-specific Age: > 65 Risk factors: 1-2 risk factors Troponin: Troponin T < 0.010 ng/mL (0.00-0.029) 07/11/20 18:29 Troponin: < normal limit Results - Labs CBC & Chem 7: 07/12/20 05:05 07/14/20 05:08 Labs: Laboratory Last Values WBC 8.5 K/mm3 (4.5-11.0) 07/12/20 05:05 RBC 5.53 M/mm3 (3.65-5.03) H 07/12/20 05:05 Hgb 17.2 gm/dl (11.8-15.2) H 07/12/20 05:05 Hct 51.2 % (35.5-45.6) H 07/12/20 05:05 MCV 93 fl (84-94) 07/12/20 05:05 MCH 31 pg (28-32) 07/12/20 05:05 MCHC 34 % (32-34) 07/12/20 05:05 RDW 15.2 % (13.2-15.2) 07/12/20 05:05 Plt Count 152 K/mm3 (140-440) 07/12/20 05:05 Lymph % (Auto) 26.8 % (13.4-35.0) 07/12/20 05:05 [place] % (Auto) 10.2 % (0.0-7.3) H 07/12/20 05:05 Eos % (Auto) 5.4 % (0.0-4.3) H 07/12/20 05:05 Baso % (Auto) 0.4 % (0.0-1.8) 07/12/20 05:05 Lymph # (Auto) 2.3 K/mm3 (1.2-5.4) 07/12/20 05:05 [place] # (Auto) 0.9 K/mm3 (0.0-0.8) H 07/12/20 05:05 Eos # (Auto) 0.5 K/mm3 (0.0-0.4) H 07/12/20 05:05 Baso # (Auto) 0.0 K/mm3 (0.0-0.1) 07/12/20 05:05 Seg Neutrophils % 57.2 % (40.0-70.0) 07/12/20 05:05 Seg Neutrophils # 4.9 K/mm3 (1.8-7.7) 07/12/20 05:05 PT 13.3 Sec. (12.2-14.9) 07/11/20 16:17 INR 1.03 (0.87-1.13) 07/11/20 16:17 APTT 30.3 Sec. (24.2-36.6) 07/11/20 16:17 D-Dimer 2470.19 ng/mlDDU (0-234) H 07/11/20 18:27 Sodium 135 mmol/L (137-145) L 07/14/20 05:08 Potassium 3.9 mmol/L (3.6-5.0) 07/14/20 05:08 Chloride 97.4 mmol/L (98-107) L 07/14/20 05:08 Carbon Dioxide 28 mmol/L (22-30) 07/14/20 05:08 Anion Gap 14 mmol/L 07/14/20 05:08 BUN 39 mg/dL (9-20) H 07/14/20 05:08 Creatinine 1.3 mg/dL (0.8-1.3) 07/14/20 05:08 Estimated GFR 52 ml/min 07/14/20 05:08 BUN/Creatinine Ratio 30 % 07/14/20 05:08 Glucose 152 mg/dL (75-100) H 07/14/20 05:08 Calcium 8.9 mg/dL (8.4-10.2) 07/14/20 05:08 Magnesium 2.10 mg/dL (1.7-2.3) 07/13/20 21:58 Ferritin 173.6 ng/mL (30.0-300.0) 07/11/20 18:27 Total Bilirubin 0.90 mg/dL (0.1-1.2) 07/11/20 16:17 AST 31 units/L (5-40) 07/11/20 16:17 ALT 24 units/L (7-56) 07/11/20 16:17 Alkaline Phosphatase 116 units/L (35-129) 07/11/20 16:17 Lactate Dehydrogenase 283 units/L (91-180) H 07/11/20 18:27 Total Creatine Kinase 96 units/L (55-170) 07/11/20 16:17 Troponin T < 0.010 ng/mL (0.00-0.029) 07/11/20 18:29 C-Reactive Protein 2.10 mg/dL (0.00-1.30) H 07/11/20 18:27 NT-Pro-B Natriuret Pep 2337 pg/mL (0-900) H 07/11/20 16:17 Total Protein 6.8 g/dL (6.3-8.2) 07/11/20 16:17 Albumin 3.6 g/dL (3.9-5) L 07/11/20 16:17 Albumin/Globulin Ratio 1.1 % 07/11/20 16:17 Lipase 13 units/L (13-60) 07/11/20 16:17 Procalcitonin < 0.05 ng/mL (<0.15) 07/11/20 18:27 TSH 2.790 mlU/mL (0.270-4.200) 07/11/20 21:09 Free T4 1.08 ng/dL (0.76-1.46) 07/11/20 21:09 Coronavirus (PCR) Positive (Negative) A 07/12/20 Unknown Microbiology: Microbiology 07/11/20 18:27 Peripheral/Venous Blood Culture - Preliminary NO GROWTH AFTER 48 HOURS 07/11/20 18:30 Peripheral/Venous Blood Culture - Preliminary NO GROWTH AFTER 48 HOURS Jesus/IV: Voiding Method Urinal Active Medications - Current Medications Current Medications: Generic Name Dose Route Start Last Admin Trade Name Freq PRN Reason Stop Dose Admin Acetaminophen 650 mg 07/11/20 18:34 Acetaminophen 325 Mg Tab PO Q4H PRN Pain MILD(1-3)/Fever >100.5/MOORE Albuterol 2.5 mg 07/11/20 18:34 Albuterol 2.5 Mg/3 Ml Nebu IH Q4HRT PRN Shortness Of Breath Chlorpromazine HCl 25 mg 07/13/20 15:11 07/13/20 17:53 Chlorpromazine 25 Mg Tab PO 25 mg Q6H PRN Administration Hiccups Dexamethasone 6 mg 07/13/20 10:00 07/14/20 09:11 Dexamethasone 4 Mg Tab PO 07/22/20 10:01 6 mg DAILY SALAS Administration Furosemide 40 mg 07/12/20 12:00 07/14/20 09:11 Furosemide 40 Mg/4 Ml Inj IV 40 mg QDAY SALAS Administration Heparin Sodium (Porcine) 5,000 unit 07/13/20 14:00 07/14/20 06:07 Heparin 5,000 Unit/1 Ml Vial SUB-Q 5,000 unit Q8HR SALAS Administration REMDESIVIR 200 mg/ Sodium 250 mls @ 500 mls/hr 07/14/20 11:00 Chloride IV 07/14/20 11:29 ONCE ONE REMDESIVIR 100 mg/ Sodium 250 mls @ 500 mls/hr 07/15/20 21:00 Chloride IV 07/18/20 21:29 Q24HR@2100 SALAS Metoprolol Tartrate 25 mg 07/12/20 22:00 07/14/20 09:11 Metoprolol Tartrate 25 Mg Tab PO 25 mg BID SALAS Administration Ondansetron HCl 4 mg 07/11/20 18:34 07/12/20 10:58 Ondansetron 4 Mg/2 Ml Inj IV 4 mg Q8H PRN Administration Nausea And Vomiting Sodium Chloride 10 ml 07/11/20 22:00 07/14/20 09:12 Sodium Chloride 0.9% 10 Ml Flush Syringe IV 10 ml BID SALAS Administration Sodium Chloride 10 ml 07/11/20 18:34 Sodium Chloride 0.9% 10 Ml Flush Syringe IV PRN PRN LINE FLUSH Sodium Chloride 50 ml 07/14/20 11:30 Sodium Chloride 0.9% 50 Ml Ivpb IV 07/18/20 21:01 Q24HR@2100 [facility] Nutrition/Malnutrition Assess - Dietary Evaluation Nutrition/Malnutrition Findings: Nutrition Notes Start: 07/12/20 10:44 Freq: Status: Active Protocol: Document 07/12/20 10:44 AT (Rec: 07/12/20 10:59 AT [id number]) Co-Sign 07/12/20 10:44 Nutrition Notes Need for Assessment generated from: proofreader,MST Initial or Follow up Assessment Current Diagnosis Heart Failure Other Pertinent Diagnosis COVID PUI, SOB, Chest Pain Current Diet Cardiac Diet Labs/Tests Reviewed Pertinent Medications Zofran Height 5 ft Weight 68.039 kg [place] Body Weight (kg) 48.18 BMI 29.2 Weight Status Overweight Subjective/Other Information Screen for MST of 2. Was unable to reach pt by phone x2 , however, pt does not speak Pashto. Pt has no PMH. Per chart, pt has equal and strong materials intern strength. Per RN, unable to determine whether the pt has been eating due to recent admission, but pt is drinking very little fluid. Per RN, pt has no signs of edema. 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 No Is Patient Ambulatory and/or Out of Bed Yes REE-([place]-St. Jeor-ambulatory/OOB) [ 1576.757 NUTR.[id number]] Calculation Used for Recommendations [place]-St Jeor Additional Notes PRO needs: 68 - 82 g (1-1.2 g/ kg) Fluid needs: 1238-5313 mL or per Nutrition Intervention Change Diet Order: Continue Cardiac Diet Add Supplement/Snack (indicate name/kcal Ensure Enlive daily /protein ) Provides kCal: 350 Provides Protein (gm) 20 Goal #1 Meet at least 75% of estimated energy and protein needs via ONS and diet Goal #2 Weight maintenance Anticipated Discharge Needs: Cardiac diet Follow-Up By: 07/14/20 Additional Comments F/U for intankes and ONS tolerance
--- NOTE | 2020-07-14 09:53 | Progress Note ---
Assessment and Plan Cont PO lopressor as BPs permit. Consider addition of amiodarone if necessary for HR optimization. Cont Eliquis. Plan to obtain tte once COVID-19 infection is adequately managed. The patient has been seen in conjunction with Dr. Maryan Diaz who agrees with the assessment and plan of care. - Patient Problems (1) Suspected 2019 novel coronavirus infection Current Visit: Yes Status: Acute (2) Acute heart failure Current Visit: Yes Status: Acute (3) Paroxysmal atrial flutter Current Visit: Yes Status: Chronic Subjective Date of service: 07/14/20 Principal diagnosis: COVID-19 Interval history: tele reviewed - pt in AFlutter with HR 90s - 100s. Objective Last Vital Signs Temp 97.5 F L 07/14/20 03:58 Pulse 102 H 07/14/20 09:11 Resp 18 07/14/20 03:58 BP 93/62 07/14/20 09:11 Pulse Ox 98 07/14/20 03:59 - Physical Examination Narrative exam: agree with physical examination per primary team - Labs and Meds Comprehensive Metabolic Panel 07/14/20 Range/Units 05:08 Sodium 135 L (137-145) mmol/L Potassium 3.9 (3.6-5.0) mmol/L Chloride 97.4 L (98-107) mmol/L Carbon Dioxide 28 (22-30) mmol/L BUN 39 H (9-20) mg/dL Creatinine 1.3 (0.8-1.3) mg/dL Glucose 152 H (75-100) mg/dL Calcium 8.9 (8.4-10.2) mg/dL - Imaging and Cardiology EKG: report reviewed, image reviewed Echo: pending - EKG Sinus rhythms and dysrhythmias: sinus rhythm
[2020-07-14] MEDS: APIXABAN 5 MG TAB PO SCH ×2 (10:55→22:28)
[2020-07-14] MEDS ORDERED: REMDESIVIR 100 MG VIAL IV ONE (11:00)
[2020-07-14] MEDS ORDERED: REMDESIVIR 200 MG in SODIUM CHLORIDE 0.9% 250ML 250 ML IV ONE (11:00)
[2020-07-14] MEDS ORDERED: SODIUM CHLORIDE 0.9% 50 ML IVPB IV SCH (11:30)
--- NOTE | 2020-07-14 12:25 | Progress Note ---
Assessment and Plan Cultures: Blood culture no growth COVID-19 positive A/P: 84-year-old male presents with COVID-19 #Severe COVID-19 pneumonia: Patient presented with a 2 weeks of symptoms, chest x-ray with diffuse bilateral infiltrates. Inflammatory markers elevated. Normal procalcitonin #Acute hypoxemic respiratory failure: Likely secondary to COVID-19 infection. Currently on 2L NC Recs: -Dexamethasone 6 mg IV/PO daily for 10 days -Remdesivir 200 mg IV q day x 1 followed by 100 mg IV q day x 4 days. Day 2 of 5. probably marginal benefit at this point. -Obtain q48-72h inflammatory markers - ferritin, Ddimer, CRP, LDH -Anticoagulation per hospital protocol -Proning as able Thank you for the consult, we will continue to follow. Lata Darling MD [facility] ([facility]) O: [phone] F: [phone] Subjective Date of service: 07/14/20 Principal diagnosis: COVID-19 Interval history: Afebrile, normal white count. NC 2L Objective - Exam Narrative Exam: Physical exam deferred due to PPE conservation strategy. Please refer to primary team's note. - Constitutional Vitals: Vital Signs Temp Pulse Resp BP Pulse Ox 97.5 F L 102 H 18 93/62 98 07/14/20 03:58 07/14/20 09:11 07/14/20 03:58 07/14/20 09:11 07/14/20 03:59 Temperature -Last 24 Hours Temperature 97.5 F Temperature 97.2 F Temperature 98.4 F - Labs CBC & Chem 7: 07/12/20 05:05 07/14/20 05:08 Labs: Abnormal lab results 07/14/20 Range/Units 05:08 Sodium 135 L (137-145) mmol/L Chloride 97.4 L (98-107) mmol/L BUN 39 H (9-20) mg/dL Glucose 152 H (75-100) mg/dL
[2020-07-15 06:55] LABS: Alanine Aminotransferase 24 units/L (7-56); Albumin 3.1 g/dL (3.9-5); BUN/Creatinine Ratio 46; Blood Urea Nitrogen 41 mg/dL (9-20); Calcium 8.4 mg/dL (8.4-10.2); Hemolysis Index 5
[2020-07-15] MEDS: APIXABAN 5 MG TAB PO SCH (10:54)
[2020-07-15] MEDS: DEXAMETHASONE 4 MG TAB PO SCH (10:54)
[2020-07-15] MEDS: METOPROLOL TARTRATE 25 MG TAB PO SCH (11:02)
--- NOTE | 2020-07-15 11:15 | Discharge Summary ---
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 Pt reports" I can not breathe". Information limited due to american sign language interpreter used. Pt states that he has experienced shortness of breath, generalized weakness, body aches, productive cough with clear sputum, and subjective fever over the past 2 weeks with worsening symptoms over the past 4 days. Patient knowledges chest wall discomfort with deep breathing. Patient transported to [facility] via private vehicle for further care and evaluation of the aforementioned symptoms. The patient was found to have symptoms consistent with coronavirus infection. Patient also found to have clinical symptoms as well as laboratory findings, and chest x-ray findings consistent with CHF decompensation. 07/12: We will continue current management at this time. Patient with elevated D-dimer we will check a CTA to rule out pulmonary embolism and also Doppler of the left lower extremity to rule out DVT. We will try to contact family to obtain further information, will start patient on Solumedrol while awaiting COVID19 Test result. Patient may benefit from outpatient cardiology evaluation or inpatient work-up. If Covid is negative will proceed with echocardiogram. Continue to wean oxygen as tolerated have discussed with nursing staff to obtain home medications. Patient did receive Lasix in the ER. May require additional doses. Will monitor closely. Will start patient on Eliquis 5 mg p.o. twice daily secondary to elevated D-dimer. Continue isolation precautions. 07/13: Covid 19 confirmed, changed to dexamethasone, evaluate for home oxygen in am. No DVT OR PE noted on imaging, except chronic respiratory changes. Will change to prophylaxis anticoagulation dose. ID consulted. Continue supportive care. 07/14: yesterday was noted to have tachycardia, possible underlying atrial flutter. Cardiology following, Echo pending. Continue current management. BB was held due to Hypotension, will decrease dose. Continue dexamethesone and Remdesivir 07/15: clinically stable today. Oxygen saturation has 94% on room air. 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 As discussed with the daughter also advised monitoring off oxygen with a pulse oximeter and also following up with bottle washing machine operator. Isolation precautions for the COVID-19. Will complete steroid therapy. Acute on chronic congestive heart failure etiology unknown Atrial flutter Acute hypoxic respiratory failure Gastro enteritis likely secondary to viral infection 2019 novel coronavirus Right BKA Hypercoagulopathy state Disposition: DC-01 TO HOME OR SELFCARE Time spent for discharge: 35-minute Core Measure Documentation - Palliative Care Palliative Care/ Comfort Measures: Not Applicable - Core Measures Any of the following diagnoses?: none Exam - Physical Exam Narrative exam: VITAL SIGNS: Reviewed. GENERAL: The patient appears normally developed, mild shortness of breath vital signs as documented. HEAD: No signs of head trauma. EYES: Pupils are equal. Extraocular motions intact. EARS: Hearing grossly intact. MOUTH: Oropharynx is normal. NECK: No adenopathy, no JVD. CHEST: Chest with diminished breath sounds bilaterally. No wheezes, rales, or rhonchi. CARDIAC: Regular rate and rhythm. S1 and S2, without murmurs, gallops, or rubs. VASCULAR: No Edema. Peripheral pulses normal and equal in all extremities. ABDOMEN: Soft, non tender and non distended. No rebound or guarding, and no masses palpated. Bowel Sounds normal. MUSCULOSKELETAL: Right BKA, good range of motion of all major joints. Extremities without clubbing, cyanosis or edema. NEUROLOGIC EXAM: Alert and oriented x 3 No focal sensory or strength deficits. Speech normal. Follows commands. PSYCHIATRIC: Mood normal. SKIN: detail exam as documented in skin assessment - Constitutional Vitals: Temp Pulse Resp BP Pulse Ox 97.7 F 94 H 16 109/67 96 07/14/20 21:36 07/15/20 11:02 07/14/20 23:32 07/15/20 11:02 07/14/20 22:38 Plan Activity: advance as tolerated, fall precautions Diet: low fat Special Instructions: record daily weights, record daily BP diary Durable Medical Equipment Needed Upon Discharge: other Additional Instructions: Purchase a pulse oximeter and monitor oxygen level you want pulse ox saturation to be greater than 90% Follow up with: PRIMARY CARE, [Primary Care Provider] - 7 Days MORENITA PÉREZ MD [Staff Physician] - 7 Days Prescriptions: dexAMETHasone [Dexamethasone] 6 mg PO DAILY #5 tablet Apixaban [Eliquis] 5 mg PO Q12HR #60 tablet Metoprolol [Lopressor TAB] 12.5 mg PO BID #30 tablet ALBUTEROL NEB's [Proventil 0.083% NEBS] 2.5 mg IH Q4HRT PRN #30 nebu PRN Reason: Shortness Of Breath chlorproMAZINE [Thorazine] 25 mg PO Q6H PRN #10 tablet PRN Reason: Hiccups
[2020-07-15 13:32] VITALS: BP 116/69
[2020-07-15] MEDS ORDERED: REMDESIVIR 100 MG in SODIUM CHLORIDE 0.9% 250ML 250 ML IV SCH (21:00)
== END 2020-07-15 15:31 | disposition home or self-care (01) | DRG 177 ==
LOC: ED 15:39 → 3A 18:35
PROVIDERS: ADMIT Internal Medicine; ATTEND Internal Medicine
DX: U07.1 COVID-19 (principal); J96.01 Acute respiratory failure with hypoxia; J12.82 Pneumonia due to coronavirus disease 2019; D68.59 Other primary thrombophilia; I48.92 Unspecified atrial flutter; I50.9 Heart failure, unspecified; Z20.822 Contact with and (suspected) exposure to COVID-19; Z89.611 Acquired absence of right leg above knee; Z82.49 Family history of ischemic heart disease and other diseases of the circulatory system; A08.4 Viral intestinal infection, unspecified
CPT/HCPCS: 36415; 71045; 71275; 80048; 80053; 82550; 82728; 82947; 82962; 83615; 83690; 83735; 83880; 84145; 84439; 84443; 84484; 85025; 85379; 85610; 85730; 86140; 87040; 93005; 93306; 93970; 94760; G0378; J1644; J1940; J2405; J2930; J8540; Q0161; Q9967; U0003